=== PATIENT | male | born 1990 ===

== ENCOUNTER 2021-12-07 15:48 | Emergency (ER) | payer BC, OTHER | END 2021-12-07 18:08 | disposition home or self-care (01) | LOC: MW.ED 15:48 | DX: S93.401A Sprain of unspecified ligament of right ankle, initial encounter (principal); Z88.0 Allergy status to penicillin; Z79.899 Other long term (current) drug therapy; X50.1XXA Overexertion from prolonged static or awkward postures, initial encounter | CPT/HCPCS: 73610-26-RT; 73610-RT; 99283 ==